=== PATIENT | female | born 1975 | race American Indian/Alaskan Native ===

== ENCOUNTER 2020-02-06 12:54 | Emergency (ER) | payer SELFPAY ==
--- NOTE | 2020-02-06 14:24 | XRay Report ---
CLINICAL DATA: pain after fall TECHNICAL DATA: AP and lateral views lumbar spine. FINDINGS: The bone mineralization is normal. Vertebral body heights are normal. Intervertebral disc spaces are well maintained. Pedicles and spinous processes are normal in alignment. SI joints and sacrum are nor mal. IMPRESSION: Normal examination lumbar spine. Signer Name: George Tabor MD Signed: 02/06/2020 2:20 PM Workstation Name: [id number]
--- NOTE | 2020-02-06 14:25 | XRay Report ---
CLINICAL DATA: pain after fall TECHNICAL DATA: AP and lateral view. FINDINGS: No pathologic subluxation or acute fracture identified. IMPRESSION: No pathologic subluxation or acute fracture identified. Signer Name: George Tabor MD Signed: 02/06/2020 2:20 PM Workstation Name: [id number]
--- NOTE | 2020-02-06 15:30 | Emergency Department Report ---
ED General Adult HPI - General Chief complaint: Fall Stated complaint: TAILBONE INJURY Source: patient Mode of arrival: Ambulatory Limitations: No Limitations ED Review of Systems ROS: Stated complaint: TAILBONE INJURY Other details as noted in HPI ED Past Medical Hx - Past Medical History Previous Medical History?: Yes Hx Hypertension: Yes ED Physical Exam - General Limitations: No Limitations ED Medical Decision Making - Radiology Data Radiology results: report reviewed Procedure(s): XR spine lumbosacral 2-3V Accession Number(s): [id number] cc: TRISTEN Bensata Fluoro Time In Minutes: CLINICAL DATA: pain after fall TECHNICAL DATA: AP and lateral views lumbar spine. FINDINGS: The bone mineralization is normal. Vertebral body heights are normal. Intervertebral disc spaces are well maintained. Pedicles and spinous processes are normal in alignment. SI joints and sacrum are normal. IMPRESSION: Normal examination lumbar spine. Procedure(s): XR spine sacrum/coccyx 2+V Accession Number(s): [id number] cc: [employer] Fluoro Time In Minutes: CLINICAL DATA: pain after fall TECHNICAL DATA: AP and lateral view. FINDINGS: No pathologic subluxation or acute fracture identified. IMPRESSION: No pathologic subluxation or acute fracture identified. Critical care attestation.: If time is entered above; I have spent that time in minutes in the direct care of this critically ill patient, excluding procedure time. ED Disposition Condition: Stable
--- NOTE | 2020-02-06 16:54 | Event Note ---
ED Screening Note Date of service: 02/06/20 Time: 16:53 ED Screening Note: Patient complains of low back pain after a fall onto her buttocks 01/23/2020 States she began having vaginal bleeding/hematuria Also reports having some difficulty with urination and defecation initially that has now improved Denies any paresthesias or weakness This initial assessment/diagnostic orders/clinical plan/treatment(s) is/are subject to change based on patients health status, clinical progression and re-assessment by fellow clinical providers in the ED. Further treatment and workup at subsequent clinical providers discretion. Patient/guardian urged not to elope from the ED as their condition may be serious if not clinically assessed and managed. Initial orders include: CT lumbar UA
[2020-02-06 17:59] LABS: Bilirubin,Urine NEG (Negative); Blood,Urine LG (Negative); Color,Urine Yellow (Yellow); Mucus,Urine 1+ /HPF; Urobilinogen,Urine < 2.0 mg/dL (<2.0)
--- NOTE | 2020-02-06 18:39 | Cat Scan Report ---
CT lumbar spine wo con INDICATION / CLINICAL INFORMATION: 44 years Female; bladder dysfunction, hematuria, back pain after fa. TECHNIQUE: Axial CT images of the lumbar spine were obtained after administration of intrathecal contrast. Sagi ttal and coronal reformatted images were produced. All CT scans at this location are performed using CT dose reduction for ALARA by means of automated exposure control. COMPARISON: None available. FINDINGS: POST-SURGICAL CHANGES: None. ALIGNMENT: There is no significant spondylolisthesis or scoliosis involving lumbar spine. VERTEBRAE: There are mild focal endplate changes involving anterior visualized thoracolumbar segments . There is no CT evidence of acute compression fracture. INTERVERTEBRAL DISCS: There is beam hardening artifact resulting from the patient's body habitus at. There appears be slight disco bulge and facet joint changes at L5-S1 without significant stenosis. The disc bulge and facet joint/ligament flavum hypertrophy at L4-5 mildly deform the thecal sac. The facet joint changes are greater on the right with mild encroachment on the exiting right L4 nerve scott t sheath at. Milder narrowing is seen on the left. The broad-based disc bulge at L3-4 mildly deforms the ventral thecal sac at. The bulge lateralizes to valerio the right with mild to moderate right neural foraminal narrowing. PARASPINAL SOFT TISSUES: The findings are indicative of 2 cm cyst involving visualized left kidney on the included portions at. ADDITIONAL FINDINGS: None. IMPRESSION: 1. There is no CT evidence of acute fracture involving lumbar spine. 2. There are degenerative the changes from L3-4 to L5-S1 as detailed above. Signer Name: Osman Gonzales MD Signed: 02/06/2020 6:35 PM Workstation Name: [id number]
[2020-02-06 20:08] VITALS: BP 157/90
[2020-02-06] MEDS ORDERED: IBUPROFEN 600 MG TAB PO ONE (20:50)
[2020-02-06] MEDS ORDERED: CYCLOBENZAPRINE 10 MG TAB PO ONE (20:50)
[2020-02-06] MEDS ORDERED: ACETAMINOPHEN 500 MG TAB PO ONE (20:50)
--- NOTE | 2020-02-06 20:56 | Emergency Department Report ---
ED Fall HPI - General Chief Complaint: Fall Stated Complaint: TAILBONE INJURY Time Seen by Provider: 02/06/20 16:33 Source: patient Mode of arrival: Ambulatory - History of Present Illness Initial Comments: Patient is a 44-year-old -[place] female with a history of obesity and hypertension who presents to the ED with complaint of acute onset persistent severe low back pain and tailbone pain after she tripped and fell down during a skating exercise 3 weeks ago. Patient states the pain was initially mild but has subsequently got worse. Patient states that the pain is worse with any movement or palpation of her lower back and tailbone. Patient also states that 3 days ago she developed vaginal bleeding and would like to be evaluated to confirm if the bleeding is not due to the fall that she had recently. Patient denies abdominal pain, nausea, vomiting, dizziness, syncope, numbness and tingling or weakness of lower extremities bilaterally, head or neck injuries, chest pain or shortness of breath. MD Complaint: fall, other (lower back and tail bone pain) -: Sudden, week(s) (3) Fall From: standing (skating) When Fall Occurred: other (3 weeks ago) Fall Witnessed: yes, by family, yes, by bystander Place Fall Occurred: other (Skating ring) Loss of Consciousness: none Prolonged Down Time?: no Symptoms Prior to Fall: none Location: back (lower), buttocks Severity: severe Severity scale (0 -10): 8 Quality: sharp, aching Context: tripped/slipped Associated Symptoms: denies, other (vaginal bleeding). denies: headache, neck pain, numbness, weakness, chest paint, shortness of breath, abdominal pain, hematuria, unable to walk, lightheaded, vertigo, confusion - Related Data Previous Rx's Medication Instructions Recorded Last Taken Type Baclofen 20 mg PO Q8H PRN #24 tablet 02/06/20 Unknown Rx Ibuprofen [Motrin] 800 mg PO Q8HR PRN #30 tablet 02/06/20 Unknown Rx traMADoL [Ultram] 50 mg PO Q6HR PRN #12 tablet 02/06/20 Unknown Rx Allergies Allergy/AdvReac Type Severity Reaction Status Date / Time Penicillins Allergy Hives Verified 02/06/20 17:47 ED Review of Systems ROS: Stated complaint: TAILBONE INJURY Other details as noted in HPI Constitutional: denies: chills, fever Eyes: denies: eye pain, eye discharge, vision change ENT: denies: ear pain, throat pain Respiratory: denies: cough, shortness of breath, wheezing Cardiovascular: denies: chest pain, palpitations Endocrine: no symptoms reported Gastrointestinal: denies: abdominal pain, nausea, diarrhea Genitourinary: abnormal menses (vaginal bleeding). denies: urgency, dysuria, discharge Musculoskeletal: back pain (lower), arthralgia, myalgia. denies: joint swelling Skin: denies: rash, lesions Neurological: denies: headache, weakness, paresthesias, confusion, abnormal gait, vertigo Psychiatric: denies: anxiety, depression Hematological/Lymphatic: denies: easy bleeding, easy bruising ED Past Medical Hx - Past Medical History Previous Medical History?: Yes Hx Hypertension: Yes - Medications Home Medications: Home Medications Medication Instructions Recorded Confirmed Last Taken Type Baclofen 20 mg PO Q8H PRN #24 tablet 02/06/20 Unknown Rx Ibuprofen [Motrin] 800 mg PO Q8HR PRN #30 tablet 02/06/20 Unknown Rx traMADoL [Ultram] 50 mg PO Q6HR PRN #12 tablet 02/06/20 Unknown Rx ED Physical Exam - General Limitations: No Limitations General appearance: alert, in no apparent distress - Head Head exam: Present: atraumatic, normocephalic, normal inspection - Eye Eye exam: Present: normal appearance, PERRL, EOMI Pupils: Present: normal accommodation - ENT ENT exam: Present: normal exam, normal orophraynx, mucous membranes moist, TM's normal bilaterally, normal external ear exam - Neck Neck exam: Present: normal inspection, full ROM - Respiratory Respiratory exam: Present: normal lung sounds bilaterally. Absent: respiratory distress, wheezes, rales, stridor, chest wall tenderness, accessory muscle use, decreased breath sounds - Cardiovascular Cardiovascular Exam: Present: regular rate, normal rhythm, normal heart sounds. Absent: systolic murmur, diastolic murmur, rubs, gallop - GI/Abdominal GI/Abdominal exam: Present: soft, normal bowel sounds. Absent: tenderness, guarding, rebound, hyperactive bowel sounds, hypoactive bowel sounds, organomegaly - Extremities Exam Extremities exam: Present: normal inspection, full ROM, normal capillary refill. Absent: tenderness, pedal edema - Back Exam Back exam: Present: normal inspection, full ROM, tenderness (Palpable lumbosacral paraspinal musculoskeletal tenderness), muscle spasm, paraspinal tenderness - Neurological Exam Neurological exam: Present: alert, oriented X3, CN II-XII intact, normal gait, reflexes normal - Psychiatric Psychiatric exam: Present: normal affect, normal mood - Skin Skin exam: Present: warm, dry, intact, normal color. Absent: rash ED Course Vital Signs 02/06/20 20:07 Temperature 97.9 F Pulse Rate 77 Respiratory 18 Rate Blood Pressure 157/90 [Left] O2 Sat by Pulse 100 Oximetry ED Medical Decision Making - Radiology Data Radiology results: report reviewed, image reviewed Findings [facility] [address] [place] [address] XRay Report Signed Patient: ZAHIRA ALVAREZ MR#: [id number] 050 : 1975 Acct:[id number] Age/Sex: 44 / F ADM Date: 02/06/20 Loc: ED Attending Dr: Ordering Physician: TRISTEN OROZCO Date of Service: 02/06/20 Procedure(s): XR spine lumbosacral 2-3V Accession Number(s): [id number] cc: TRISTEN OROZCO Fluoro Time In Minutes: CLINICAL DATA: pain after fall TECHNICAL DATA: AP and lateral views lumbar spine. FINDINGS: The bone mineralization is normal. Vertebral body heights are normal. Intervertebral disc spaces are well maintained. Pedicles and spinous processes are normal in alignment. SI joints and sacrum are normal. IMPRESSION: Normal examination lumbar spine. Signer Name: George Tabor MD Signed: 02/06/2020 2:20 PM Workstation Name: [id number] Transcribed By: ARON Dictated By: George Tabor MD Electronically Authenticated By: George Tabor MD Signed Date/Time: 02/06/20 142 DD/ 1419 TD/TT: Findings [facility] [address] [place] [address] XRay Report Signed Patient: ZAHIRA ALVAREZ MR#: [id number] 050 : 1975 Acct:[id number] Age/Sex: 44 / F ADM Date: 02/06/20 Loc: ED Attending Dr: Ordering Physician: TRISTEN OROZCO Date of Service: 02/06/20 Procedure(s): XR spine sacrum/coccyx 2+V Accession Number(s): [id number] cc: TRISTEN OROZCO Fluoro Time In Minutes: CLINICAL DATA: pain after fall TECHNICAL DATA: AP and lateral view. FINDINGS: No pathologic subluxation or acute fracture identified. IMPRESSION: No pathologic subluxation or acute fracture identified. Signer Name: George Tabor MD Signed: 02/06/2020 2:20 PM Workstation Name: [id number] Transcribed By: WG Dictated By: George Tabor MD Electronically Authenticated By: George Tabor MD Signed Date/Time: 02/06/201419 DD/ 19 TD/TT: Findings [facility] [address] [place] [address] Cat Scan Report Signed Patient: ZAHIRA ALVAREZ MR#: [id number] 050 : 1975 Acct:[id number] Age/Sex: 44 / F ADM Date: 02/06/20 Loc: ED Attending Dr: Ordering Physician: TRISTEN OROZCO Date of Service: 02/06/20 Procedure(s): CT lumbar spine wo con Accession Number(s): [id number] cc: TRISTEN OROZCO CT lumbar spine wo con INDICATION / CLINICAL INFORMATION: 44 years Female; bladder dysfunction, hematuria, back pain after fa. TECHNIQUE: Axial CT images of the lumbar spine were obtained after administration of intrathecal contrast. Sagittal and coronal reformatted images were produced. All CT scans at this location are performed using CT dose reduction for ALARA by means of automated exposure control. COMPARISON: None available. FINDINGS: POST-SURGICAL CHANGES: None. ALIGNMENT: There is no significant spondylolisthesis or scoliosis involving lumbar spine. VERTEBRAE: There are mild focal endplate changes involving anterior visualized thoracolumbar segments. There is no CT evidence of acute compression fracture. INTERVERTEBRAL DISCS: There is beam hardening artifact resulting from the patient's body habitus at. There appears be slight disco bulge and facet joint changes at L5-S1 without significant stenosis. The disc bulge and facet joint/ligament flavum hypertrophy at L4-5 mildly deform the thecal sac. The facet joint changes are greater on the right with mild encroachment on the exiting right L4 nerve root sheath at. Milder narrowing is seen on the left. The broad-based disc bulge at L3-4 mildly deforms the ventral thecal sac at. The bulge lateralizes toward the right with mild to moderate right neural foraminal narrowing. PARASPINAL SOFT TISSUES: The findings are indicative of 2 cm cyst involving visualized left kidney on the included portions at. ADDITIONAL FINDINGS: None. IMPRESSION: 1. There is no CT evidence of acute fracture involving lumbar spine. 2. There are degenerative the changes from L3-4 to L5-S1 as detailed above. Signer Name: Osman Gonzales MD Signed: 02/06/2020 6:35 PM Workstation Name: [id number] Transcribed By: MR Dictated By: Osman Gonzales MD Electronically Authenticated By: Osman Gonzales MD Signed Date/Time: 02/06/201834 DD/ 28 TD/TT - Medical Decision Making This is a 44-year-old -[place] female with a history of obesity and hypertension who presents to the ED with complaint of acute onset persistent severe low back pain and tailbone pain after she tripped and fell down during a skating exercise 3 weeks ago. Patient states the pain was initially mild but has subsequently got worse. Patient states that the pain is worse with any movement or palpation of her lower back and tailbone. Patient also states that 3 days ago she developed vaginal bleeding and would like to be evaluated to confirm if the bleeding is not due to the fall that she had recently. In the ED, patient is alert and oriented x3 and is not in distress. The L-spine x-ray shows no acute fractures or subluxations. The coccygeal x-ray showed no acute fractures or subluxations. The L-spine CT scan without contrast also shows no acute cervical disc fractures or subluxations but chronic degenerative disc disease. Patient was treated for pain in the ED. Patient eloped from the ED prior to being discharged - Differential Diagnosis Muscle spasm; muscle strain; contusion; sacral fracture; lumbar fracture Critical care attestation.: If time is entered above; I have spent that time in minutes in the direct care of this critically ill patient, excluding procedure time. ED Disposition Clinical Impression: Spasm of muscle of lower back Lumbar contusion Qualifiers: Encounter type: initial encounter Qualified Code(s): S30.0XXA - Contusion of lower back and pelvis, initial encounter Disposition: Z-07 ELOPED Is pt being admited?: No Does the pt Need Aspirin: No Condition: Stable Instructions: Muscle Cramps and Spasms, [id number], Tailbone Injury, [id number] Additional Instructions: All imaging reports showed no acute abnormalities, fractures or subluxations. Therefore your injuries are likely musculoskeletal. Therefore take medications as needed for pain, drink plenty of fluids, follow-up with your primary care physician in 7 to 10 days for reevaluation or return to the ED immediately if symptoms get worse. Prescriptions: Baclofen 20 mg PO Q8H PRN #24 tablet PRN Reason: Muscle Spasm Ibuprofen [Motrin] 800 mg PO Q8HR PRN #30 tablet PRN Reason: Pain , Severe (7-10) traMADoL [Ultram] 50 mg PO Q6HR PRN #12 tablet PRN Reason: Pain Referrals: [facility] [Provider Group] - 3-5 Days Time of Disposition: 20:58 Print Language: KUWAITI
== END 2020-02-06 21:02 | disposition left against medical advice (07) ==
LOC: ED 12:54
DX: S30.0XXA Contusion of lower back and pelvis, initial encounter (principal); M62.830 Muscle spasm of back; I10 Essential (primary) hypertension; Z79.899 Other long term (current) drug therapy; Z88.0 Allergy status to penicillin; W01.0XXA Fall on same level from slipping, tripping and stumbling without subsequent striking against object, initial encounter; Y93.89 Activity, other specified; Y92.89 Other specified places as the place of occurrence of the external cause; Y99.8 Other external cause status
CPT/HCPCS: 72100; 72131; 72220; 81001

== ENCOUNTER 2021-06-26 19:48 | Emergency (ER) | payer SELFPAY ==
--- NOTE | 2021-06-27 05:08 | Emergency Department Report ---
- General Chief Complaint: Wound/Laceration Stated Complaint: RT LEG LACERATION Source: patient Mode of arrival: Ambulatory Limitations: No Limitations - History of Present Illness Initial Comments: Patient is a 45-year-old -[place] female with a history of hypertension who presents to the ED with complaint of acute onset persistent small bleeding laceration on the dorsal right foot after a metallic object fell on her right foot while at the grocery store about 8 hours ago. Patient states that the bleeding is well controlled at this time. Patient denies dizziness, syncope, nausea and vomiting, numbness and tingling or weakness of right foot or headache and pain injuries. Patient states that she is up-to-date with her tetanus vaccination. -: Sudden, hour(s) (8) Location: other (Right foot abrasion) Extremity Location: Right: Foot (dorsal right foot abrasion) Place: other (grocery store) Patient Tetanus UTD: Yes Context: accidental, sharp object use Associated Symptoms: pain. denies: loss of feeling/numbness, suspect foreign body present, unable to move injured part, weakness followed by dizziness, nausea/vomiting Treatments Prior to Arrival: bandage - Related Data Previous Rx's Medication Instructions Recorded Last Taken Type Baclofen 20 mg PO Q8H PRN #24 tablet 02/06/20 Unknown Rx traMADoL [Ultram] 50 mg PO Q6HR PRN #12 tablet 02/06/20 Unknown Rx Ibuprofen [Motrin 800 MG tab] 800 mg PO Q8HR PRN #30 tablet 06/27/21 Unknown Rx Sulfamethoxazole/Trimethoprim 1 each PO Q12H #20 tab 06/27/21 Unknown Rx [Bactrim DS TAB] Allergies Allergy/AdvReac Type Severity Reaction Status Date / Time Penicillins Allergy Hives Verified 02/06/20 17:47 ED Review of Systems ROS: Stated complaint: RT LEG LACERATION Other details as noted in HPI Constitutional: denies: chills, fever Eyes: denies: eye pain, eye discharge, vision change ENT: denies: ear pain, throat pain Respiratory: denies: cough, shortness of breath, wheezing Cardiovascular: denies: chest pain, palpitations Endocrine: no symptoms reported Gastrointestinal: denies: abdominal pain, nausea, diarrhea Genitourinary: denies: urgency, dysuria, discharge Musculoskeletal: arthralgia (Dorsal right foot pain due to a small abrasion wound). denies: back pain, joint swelling Skin: other (Small abrasion wound on dorsal right foot ). denies: rash, lesions Neurological: denies: headache, weakness, paresthesias Psychiatric: denies: anxiety, depression Hematological/Lymphatic: denies: easy bleeding, easy bruising ED Past Medical Hx - Past Medical History Hx Hypertension: Yes - Medications Home Medications: Home Medications Medication Instructions Recorded Confirmed Last Taken Type Baclofen 20 mg PO Q8H PRN #24 tablet 02/06/20 Unknown Rx traMADoL [Ultram] 50 mg PO Q6HR PRN #12 tablet 02/06/20 Unknown Rx Ibuprofen [Motrin 800 MG tab] 800 mg PO Q8HR PRN #30 tablet 06/27/21 Unknown Rx Sulfamethoxazole/Trimethoprim 1 each PO Q12H #20 tab 06/27/21 Unknown Rx [Bactrim DS TAB] ED Physical Exam - General Limitations: No Limitations General appearance: alert, in no apparent distress - Head Head exam: Present: atraumatic, normocephalic, normal inspection - Eye Eye exam: Present: normal appearance, PERRL, EOMI Pupils: Present: normal accommodation - ENT ENT exam: Present: normal exam, normal orophraynx, mucous membranes moist, TM's normal bilaterally, normal external ear exam - Neck Neck exam: Present: normal inspection, full ROM. Absent: tenderness - Respiratory Respiratory exam: Present: normal lung sounds bilaterally. Absent: respiratory distress, wheezes, rales, rhonchi, chest wall tenderness, accessory muscle use, decreased breath sounds, prolonged expiratory - Cardiovascular Cardiovascular Exam: Present: regular rate, normal rhythm, normal heart sounds. Absent: systolic murmur, diastolic murmur, rubs, gallop - GI/Abdominal GI/Abdominal exam: Present: soft, normal bowel sounds. Absent: tenderness, guarding, rebound, hyperactive bowel sounds, hypoactive bowel sounds, organomegaly - Extremities Exam Extremities exam: Present: normal inspection, full ROM, tenderness (Mild dorsal right foot tenderness due to the small abrasion wound), normal capillary refill. Absent: pedal edema, joint swelling, calf tenderness - Back Exam Back exam: Present: normal inspection, full ROM. Absent: tenderness, CVA tenderness (R), CVA tenderness (L), muscle spasm, paraspinal tenderness, vertebral tenderness - Neurological Exam Neurological exam: Present: alert, oriented X3, CN II-XII intact, normal gait, reflexes normal - Psychiatric Psychiatric exam: Present: normal affect, normal mood - Skin Skin exam: Present: warm, dry, intact, normal color, abrasion (Small abrasion wound on dorsal right foot). Absent: rash ED Course Vital Signs 06/26/21 21:11 Temperature 97.9 F Pulse Rate 69 Respiratory 16 Rate Blood Pressure 168/71 O2 Sat by Pulse 94 Oximetry ED Medical Decision Making - Medical Decision Making This is a 45-year-old -[place] female with a history of hypertension who presents to the ED with complaint of acute onset persistent small bleeding laceration on the dorsal right foot after a metallic object fell on her right foot while at the grocery store about 8 hours ago. Patient states that the bleeding is well controlled at this time. In the ED, patient is alert and oriented x3 and is not in any distress. Wound was cleaned extensively with normal saline and dressed appropriately. Patient was discharged home on pain medication and oral antibiotics and advised to follow-up with her primary care physician in 7 to 10 days for reevaluation. Return to the ED immediately if symptoms get worse. - Differential Diagnosis Foot abrasion; foot contusion; foot sprain Critical care attestation.: If time is entered above; I have spent that time in minutes in the direct care of this critically ill patient, excluding procedure time. ED Disposition Clinical Impression: Abrasion, right foot, initial encounter, Contusion of right foot, initial encounter Disposition: 01 HOME / SELF CARE / HOMELESS Is pt being admited?: No Does the pt Need Aspirin: No Condition: Stable Instructions: Foot Contusion, [id number]-Tbhj, Abrasion, Xilx-os-Dibj Additional Instructions: Take medication with food, drink plenty of fluids and follow-up with your primary care physician in 7 to 10 days for reevaluation. Return to the ED immediately if symptoms get worse. Prescriptions: Sulfamethoxazole/Trimethoprim [Bactrim DS TAB] 1 each PO Q12H #20 tab Ibuprofen [Motrin 800 MG tab] 800 mg PO Q8HR PRN #30 tablet PRN Reason: Pain , Severe (7-10) Referrals: [facility] [Provider Group] - 3-5 Days Forms: Work/School Release Form(ED) Time of Disposition: 05:09 Print Language: SAMMARINESE
[2021-06-27 06:57] VITALS: BP 122/71
== END 2021-06-27 07:00 | disposition home or self-care (01) ==
LOC: ED 19:48
DX: S90.31XA Contusion of right foot, initial encounter (principal); I10 Essential (primary) hypertension; Z88.0 Allergy status to penicillin; Z79.899 Other long term (current) drug therapy; W18.39XA Other fall on same level, initial encounter; Y93.89 Activity, other specified; Y92.89 Other specified places as the place of occurrence of the external cause; Y99.8 Other external cause status
CPT/HCPCS: 99282